=== PATIENT | female | born 1995 | race Caucasian/White ===

== ENCOUNTER → 2019-02-01 08:26 | Outpatient (CLI) | payer OTHER, SELFPAY ==
[2019-02-01 08:20] VITALS: BMI 34.7
--- NOTE | 2019-02-01 08:31 | RAD_ITS ---
STUDY: X-RAY - LUMBAR SPINE REASON FOR EXAM: Female, 23 years old. Back pain. TECHNIQUE: 5 view(s) of the lumbar spine were obtained including oblique views. COMPARISON: Comparison is made with prior study dated July 14, 2016. FINDINGS: Normal lumbar lordosis. There is no substantial scoliosis. There is a normal alignment of the vertebrae. Normal vertebral bodies and endplates. Normal disc space heights. The soft tissue structures are unremarkable. RAD/L/S Spine Min 4 Views IMPRESSION: Normal x-ray examination of the lumbar spine. Electronically Signed: Sudheer Elizondo, at 9:06 EDT , Service support ,
--- NOTE | 2019-02-01 08:31 | RAD_ITS ---
We are attempting to reach Mickey Acuña to discuss findings. An addendum with communication details will be sent when the communication is complete. STUDY: X-RAY - CERVICAL SPINE REASON FOR EXAM: Female, 23 years old. Pain. TECHNIQUE: 3 view(s) of the cervical spine were obtained. COMPARISON: None FINDINGS: Normal anterior atlantoaxial articulation. Normal odontoid process. There is straightening of the normal cervical lordosis. Normal vertebral bodies and endplates. Normal disc space heights. Normal visualized intervertebral neuroforamina. The soft tissue structures are unremarkable. RAD/Cerv Spine 2 or 3 Views IMPRESSION: Straightening of the normal cervical lordosis. Pending Final Proof Editing
== END ==
PROVIDERS: Referring Provider Physician Assistant Surgical; Visit Provider Physician Assistant Surgical
DX: S16.1XXA Strain of muscle, fascia and tendon at neck level, initial encounter (principal); S39.012A Strain of muscle, fascia and tendon of lower back, initial encounter; X58.XXXA Exposure to other specified factors, initial encounter; Y93.9 Activity, unspecified; Y92.9 Unspecified place or not applicable; Y99.9 Unspecified external cause status
CPT/HCPCS: 72040; 72110

== ENCOUNTER → 2019-03-17 11:42 | Outpatient (CLI) | payer OTHER, SELFPAY ==
[2019-02-01 08:20] VITALS: BMI 34.7
[2019-03-17 13:32] LABS: Absolute Lymphocyte Count 2.99 X10^3/ul (0.83-4.51); Absolute Neutrophil Count 5.6 X10^3/uL (2.0-7.7); Basophil# 0.02 X10^3/uL; Basophil% 0.2 % (0-1); Eosinophil# 0.06 X10^3/uL; Eosinophils% 0.6 % (0-5); Hematocrit 41.7 % (37-47); Hemoglobin 13.6 g/dl (12.0-15.0); Lymphocyte # 2.99 X10^3/ul (4.0); Lymphocyte % 32.4 % (19-41); Mean Corp Hgb Conc 32.6 g/gl (32-36); Mean Corpuscular Hgb 29.4 pg (27.0-32.0); Mean Corpuscular Volume 90.1 fL (81-99); Mean Platelet Vol. 10.6 fl (6.2-12.0); Monocyte# 0.54 X10^3/uL; Monocyte% 5.8 % (0-10); Neutrophil # 5.61 X10^3/uL (2.7-7.7); Neutrophil % 60.8 % (47-70); Platelet Count 270 K/mm3 (150-450); RBC Distribution Width CV 13.4 % (11.6-14.6); RBC Distribution Width SD 44.1 fl (35.1-43.9); Red Blood Count 4.63 M/mm3 (4.2-5.4); White Blood Count 9.2 K/mm3 (4.4-11.0)
[2019-03-17 13:36] LABS: POSITIVE COUNT NO; POSITIVE DIFFERENTIAL NO; POSITIVE MORPHOLOGY NO
[2019-03-17 13:52] LABS: ALB/GLOB Ratio 0.9 RATIO (0.9-2.4); AST(SGOT) 13 U/L (15-37); Alanine Aminotransfer ALT/SGPT 20 U/L (13-56); Albumin, Serum 3.7 g/dL (3.2-5.0); Alkaline Phosphatase 47 U/L (45-117); Anion Gap 5 (5-15); BUN 14 mg/dL (7-18); BUN/Creat Ratio 20.1 RATIO (10-20); Chloride 106 mmol/L (98-107); Cholesterol 178 mg/dL (200); EST Glomerular Filtration Rate 110 mL/min (>60); Est Glom Filt Rate - Afr Amer 133 mL/min (>60); Globulin 4.2 g/dL (2.2-4.2); Glucose 88 mg/dL (74-106); High Density Lipoprotein 43 mg/dL; Potassium 3.9 mmol/L (3.5-5.1); Protein, Total 7.9 g/dL (6.4-8.2); Sodium Level 136 mmol/L (136-145); Thyroid Stim Hormone (TSH) 0.97 uIU/mL (0.358-3.74); Triglycerides 217 mg/dL; Very Low Density Lipoprotein 43 mg/dL (5-40)
== END ==
PROVIDERS: Family Provider Student in an Organized Health Care Education/Training Program; PCP Student in an Organized Health Care Education/Training Program; Referring Provider Advanced Practice Midwife; Visit Provider Advanced Practice Midwife
DX: Z01.419 Encounter for gynecological examination (general) (routine) without abnormal findings (principal); Z13.29 Encounter for screening for other suspected endocrine disorder; Z13.220 Encounter for screening for lipoid disorders
CPT/HCPCS: 36415; 80053; 80061; 84443; 85025

== ENCOUNTER 2021-06-28 18:40 | Outpatient (CLI) | payer OTHER, SELFPAY ==
[2021-06-28] VITALS (7 sets, daily range): BP systolic 133; BP diastolic 84; PULSE 98–117; TEMP 36.9–37.7; O2SAT 98–100; BMI 37.9
--- NOTE | 2021-06-28 19:45 | OB.TRI.NOTE ---
HPI - General HPI Narrative TOM JUSTICE, is a 26 F who presents with pelvic pain and pressure. She states all day today she has noticed a throbbing pain in her vagina, and a pressure sensation as if she has to have a bowel movement and urinate at same time. She feels that her abdomen is occasionally tightening but unable to keep track of this. No vaginal bleeding or leaking of fluid. No fevers or chills. Eating well. No vomiting. She reports constipation and her last bowel movement was 2 days ago. No urinary symptoms. complicated by A2GDM on insulin. H/o prior IOL at 39 wks for gHTN. On baby ASA. Maternal Data Information BRANDI Calculator Estimated Delivery Date Method Current WG Current Estimate 09/07/21 LMP (Certain) 29w 6d [facility] Medical History (Updated 06/28/21 @ 19:[address] Elizabeth Ariza, DO) Chronic neck and back pain Fatigue History of anemia Limb weakness Severe headache Shoulder pain unexplained bruises Home Medications aspirin 81 mg PO DAILY 06/28/21 [History Last Taken 06/27/21 17:00] ferrous sulfate [iron] 325 mg PO DAILY 06/28/21 [History Last Taken 06/27/21 17:00] insulin NPH isoph U-100 human 8 unit SUBCUT QPM 06/28/21 [History Last Taken 06/27/21 21:00] [id number]-[id number]-FA [] 1 tab PO DAILY 06/28/21 [History Last Taken 06/28/21 08:00] Allergy/AdvReac Type Severity Reaction Status Date / Time No Known Allergies Allergy Verified 06/28/21 19:33 Family History Mother Lung cancer Father Lupus Other Diabetes Hypertension Surgical History (Updated 06/28/21 @ 19:[address] Elizabeth Ariza, ) Hx of section Social History (Updated 02/01/19 @ 09:47 by Domenico ISAAC, PONCHO) Smoking Status: Light Smoker (<10/day) alcohol intake: never Visit Details Expected Delivery Route/Plan Patient has h/o section and plans for a repeat section. ROS ROS Narrative As noted in HPI. Physical Exam Const alert, no apparent distress and healthy appearing General Appearance: comfortable HEENT normocephalic GI soft to palpation and non-tender Extremity normal to inspection NST FHR Rate Baby A Baseline: 140 Variability:: Moderate Accelerations:: 10 x 10 Decelerations:: None NST Reactive:: Appropriate for gestational age Uterine Activity:: Occasional ctx Assessment & Plan (1) 29 weeks gestation of : PLAN: - Abd is non tender and exam not acute - FFN collected - Cervix closed on exam - Dispo pending FFN and cervical recheck (2) History of section: (3) Gestational diabetes: (4) History of gestational hypertension: (5) Vaginal pain: (6) Pelvic pressure in : (7) Constipation:
[2021-06-28 20:29] LABS: Color, Urine Yellow (Yellow); Glucose, Dipstick Normal (Normal); Ketone-Dipstick Negative (Negative); Leukocyte Esterase-Dipstick Negative /ul (Negative); Nitrite-Dipstick Negative (Negative); Occult Blood-Urine Negative /ul (Negative); Protein-Dipstick Negative (Negative); Specific Gravity, Urine 1.025 (1.002-1.030); Urine Bilirubin Dipstick Negative (Negative); Urine Clarity Clear (Clear); Urine Urobilinogen Normal (Normal)
[2021-06-28 20:31] LABS: Fetal Fibronectin Negative
== END 2021-06-28 21:00 | disposition home or self-care (01) ==
LOC: WPOUT 18:49 → WP 18:49
PROVIDERS: PCP Student in an Organized Health Care Education/Training Program; Referring Provider Obstetrics & Gynecology; Visit Provider Obstetrics & Gynecology
DX: O99.613 Diseases of the digestive system complicating pregnancy, third trimester (principal); K59.00 Constipation, unspecified; R10.2 Pelvic and perineal pain; O34.219 Maternal care for unspecified type scar from previous cesarean delivery; O24.414 Gestational diabetes mellitus in pregnancy, insulin controlled; O99.891 Other specified diseases and conditions complicating pregnancy; G89.29 Other chronic pain; M54.9 Dorsalgia, unspecified; M54.2 Cervicalgia; O99.333 Smoking (tobacco) complicating pregnancy, third trimester; F17.200 Nicotine dependence, unspecified, uncomplicated; Z79.82 Long term (current) use of aspirin; Z79.4 Long term (current) use of insulin; Z79.899 Other long term (current) drug therapy; Z3A.29 29 weeks gestation of pregnancy; Z87.59 Personal history of other complications of pregnancy, childbirth and the puerperium
CPT/HCPCS: 59025; 59050; 81002; 82731; 87086; 87088; 99218; G0378

== ENCOUNTER 2021-07-29 10:45 | Outpatient (CLI) | payer OTHER, SELFPAY ==
[2021-07-29] VITALS (27 sets, daily range): BP systolic 117–148; BP diastolic 63–80; PULSE 96–194; TEMP 36.9–37.1; O2SAT 82–98; BMI 39.2
[2021-07-29 11:33] LABS: Hematocrit 31.3 % (37-47); Hemoglobin 9.9 g/dL (12.0-15.0); Mean Corp Hgb Conc 31.6 g/dL (32-36); Mean Corpuscular Hgb 26.8 pg (27.0-32.0); Mean Corpuscular Volume 84.8 fL (81-99); Mean Platelet Vol. 11.3 fl (6.2-12.0); Platelet Count 268 K/mm3 (150-450); RBC Distribution Width CV 13.7 % (11.6-14.6); RBC Distribution Width SD 42.5 fl (35.1-43.9); Red Blood Count 3.69 M/mm3 (4.2-5.4); White Blood Count 8.7 K/mm3 (4.4-11.0)
[2021-07-29 12:09] LABS: Protein, Urine (Random) 16.9 mg/dL (<11.9); Protein:Creat Ratio 212 mg/g CRE (0-200)
[2021-07-29 12:16] LABS: ROM Internal Control Test YES-OK TO RESULT pt. (Internal QC); ROM Patient Test Negative (Negative)
--- NOTE | 2021-07-29 12:41 | EKG12_ITS ---
Test Reason : Blood Pressure : / mmHG Vent. Rate : 108 BPM Atrial Rate : 108 BPM P-R Int : 140 ms QRS Dur : 082 ms QT Int : 358 ms P-R-T Axes : 054 018 025 degrees QTc Int : 479 ms Sinus tachycardia Otherwise normal ECG Confirmed by MARINE EASON, JESUS ([id number]), book editor CRISTAL STONE ([id number]) on 07/31/2021 8:54:34 AM Referred By: Susu Rhodes Confirmed By:JESUS HAWTHORNE MD
[2021-07-29 12:47] LABS: AST(SGOT) 15 U/L (15-37); Alanine Aminotransfer ALT/SGPT 16 U/L (13-56); Creatinine, Serum 0.39 mg/dL (0.55-1.02); EST Glomerular Filtration Rate 212 mL/min (>60); Est Glom Filt Rate - Afr Amer 257 mL/min (>60); Uric Acid 3.2 mg/dL (2.6-6.0)
[2021-07-29] MEDS: 0.9 % NaCl (Sterile) Posiflush 10 mL IV ×5 (14:05→17:18)
[2021-07-29] MEDS: Acetaminophen 500 MG Tablet 1000 MG PO (14:20)
[2021-07-29] MEDS: DiphenhydrAMINE 50 MG/ML Syringe 25 MG IV (14:23)
[2021-07-29] MEDS: Metoclopramide 10 MG/2 ML Vial 5 MG IV (14:26)
[2021-07-29] MEDS: cycloBENZAPRine HCl 5 MG TABLET PO (15:08)
[2021-07-29] MEDS: Lactated Ringers 1,000 ML 999 ML IV (16:20)
--- NOTE | 2021-08-03 09:03 | OB.TRI.NOTE ---
HPI - General HPI Narrative SUSU JUSTICE, is a 26 F who presents for headache and mildly elevated blood pressure. complicated by GDMA2 and unsure of control as patient is not bringing blood sugar log. Headache started 3 to 4 days ago, no relieved by Tylenol. Rating 5-6/10. BP elevated in 150/80s at home and mild range in office. Denies visual changes, RUQ abdominal pain or swelling. Maternal Data Information BRANDI Calculator Estimated Delivery Date Method Current WG Current Estimate 09/07/21 LMP (Certain) 35w 0d PFSH PFSH Medical History (Updated 08/03/21 @ 09:07 by Susu Rhodes CNM) Chronic neck and back pain Fatigue History of anemia Limb weakness Severe headache Shoulder pain unexplained bruises Home Medications aspirin 81 mg PO DAILY 06/28/21 [History Last Taken 07/28/21 09:00 81 mg] ferrous sulfate [iron] 325 mg PO DAILY 06/28/21 [History Last Taken 07/28/21 09:00 325 mg] insulin NPH isoph U-100 human 12 unit SUBCUT QPM 06/28/21 [History Last Taken 07/28/21 22:00 12 units] jnqyhpdx-baj-Fh-FA [] 1 tab PO DAILY 06/28/21 [History Last Taken 07/28/21 09:00 1 tablet] insulin NPH isoph U-100 human 8 unit SUBCUT BREAKFAST 07/29/21 [History Last Taken 07/29/21 08:30 8 units] Allergy/AdvReac Type Severity Reaction Status Date / Time No Known Allergies Allergy Verified 07/30/21 10:39 Family History Mother Lung cancer Father Lupus Other Diabetes Hypertension Surgical History Hx of section Social History Smoking Status: Light Smoker (<10/day) alcohol intake: never Visit Details Expected Delivery Route/Plan Patient has h/o section and plans for a repeat section. ROS Constitutional Constitutional: Reports systems reviewed and no addt'l complaints, except as documented; Denies headache(s) Eyes Eyes: Denies acute decrease in peripheral vision, blurry vision or change in vision ENT HEENT: Reports headache(s); Denies dizziness Cardiovascular Cardiovascular: Denies chest pain or dizziness Respiratory/Chest Respiratory/Chest: Denies cough, dyspnea, dyspnea on exertion, shortness of breath at rest or shortness of breath with exertion Gastrointestinal Gastrointestinal: Denies abdominal pain, diarrhea, nausea or vomiting Genitourinary Genitourinary: Denies abdominal discomfort or movement Musculoskeletal Musculoskeletal: Denies limited range of motion Integumentary Integumentary: Reports systems reviewed and no addt'l complaints, except as documented Neurologic Neurologic: Reports systems reviewed and no addt'l complaints, except as documented Psychiatric Psychiatric: Reports systems reviewed and no addt'l complaints, except as documented Endocrine Endocrinology: Reports systems reviewed and no addt'l complaints, except as documented Hematologic/Lymphatic Hematologic/Lymphatic: Reports systems reviewed and no addt'l complaints, except as documented Allergic/Immunologic Allergic/Immunologic: Reports systems reviewed and no addt'l complaints, except as documented Physical Exam Const alert and oriented x3 General Appearance: cooperative Orientation / Consciousness: awake, oriented to person, oriented to place and oriented to time Exam Limitations: no limitations HEENT normocephalic Head and Scalp: normal to inspection, normocephalic and atraumatic Face and Sinus: normal facial exam Eyes General Eye: normal appearance of both eyes Neck full ROM Chest Chest: symmetrical chest wall rise Resp normal respiratory effort and normal air movement Auscultation: clear to auscultation bilaterally Cardio regular rate, regular rhythm, S1 normal heart sound, S2 normal heart sound, no murmurs, no rub, no gallops and no clicks GI normal to inspection, nondistended, normoactive bowel sounds and non-tender appearance of the vagina normal Bladder / Kidney Exam: no CVA tenderness Back/Spine normal ROM Extremity normal to inspection and full ROM Skin no rashes or lesions noted Neuro oriented x3, CN's II-XII intact bilaterally, moves all extremities and deep tendon reflexes 2+ bilaterally Sensorium / Orientation: awake, alert and oriented to person Motor Exam: clonus present +2 BLE Deep Tendon Reflexes: Rt Patellar (L4): 2+ and Lt Patellar (L4): 2+ NST FHR Rate Baby A Baseline: 125 Variability:: Moderate Accelerations:: 15 x 15 Decelerations:: None NST Reactive:: Appropriate for gestational age Uterine Activity:: Irregular contractions Assessment & Plan (1) Uterine contractions: (2) History of gestational hypertension: (3) Gestational diabetes: (4) History of section: (5) Headache: (6) Gestational HTN: PLAN: 1) Reactive NST 2) ROM plus negative 3) Preeclampsia labs normal 4) Headache cocktail, decreased pain after medication and eating 5) 1 liter of LR, decreased contractions and no cervical change 6) Follow up in office in 2 days. 7) To bring blood sugar log to visit 8) Continue to check BP at home and call if 150/90 9) Consulted and agrees with plan
== END 2021-07-29 18:25 | disposition home or self-care (01) ==
LOC: WPOUT 10:55 → WP 10:57
PROVIDERS: PCP Student in an Organized Health Care Education/Training Program; Referring Provider Advanced Practice Midwife; Visit Provider Advanced Practice Midwife
DX: O13.3 Gestational [pregnancy-induced] hypertension without significant proteinuria, third trimester (principal); O24.414 Gestational diabetes mellitus in pregnancy, insulin controlled; O34.219 Maternal care for unspecified type scar from previous cesarean delivery; O99.333 Smoking (tobacco) complicating pregnancy, third trimester; F17.200 Nicotine dependence, unspecified, uncomplicated; Z79.82 Long term (current) use of aspirin; Z3A.35 35 weeks gestation of pregnancy
CPT/HCPCS: 96361; 96365; 96375 ×2; 36415; 59025; 59050; 82565; 82570; 84112; 84156; 84450; 84460; 84550; 85027; 93005; 99218; J1756; J7120; G0378

== ENCOUNTER 2021-07-30 10:25 | Outpatient (CLI) | payer OTHER, SELFPAY ==
[2021-07-30 10:37] VITALS: BMI 39.2
[2021-07-30 10:40] VITALS: TEMP 36.9
[2021-07-30 10:48] VITALS: BP 136/74; PULSE 125
--- NOTE | 2021-07-30 12:04 | OB.TRI.NOTE ---
HPI - General HPI Narrative TOM JUSTICE, is a 26 year old at 34.3 weeks gestation who presents to triage for contractions that started earlier today. Denies any loss of fluid or vaginal bleeding. Positive movement. Denies headache, dizziness, SOB or CP. Maternal Data Information BRANDI Calculator Estimated Delivery Date Method Current WG Current Estimate 09/07/21 LMP (Certain) 34w 3d PFSH PFSH Medical History (Updated 07/30/21 @ 14:41 by Nupur Ahn CNM) Chronic neck and back pain Fatigue History of anemia Limb weakness Severe headache Shoulder pain unexplained bruises Home Medications aspirin 81 mg PO DAILY 06/28/21 [History Last Taken 07/28/21 09:00 81 mg] ferrous sulfate [iron] 325 mg PO DAILY 06/28/21 [History Last Taken 07/28/21 09:00 325 mg] insulin NPH isoph U-100 human 12 unit SUBCUT QPM 06/28/21 [History Last Taken 07/28/21 22:00 12 units] [id number]-nlz-Qh-FA [] 1 tab PO DAILY 06/28/21 [History Last Taken 07/28/21 09:00 1 tablet] insulin NPH isoph U-100 human 8 unit SUBCUT BREAKFAST 07/29/21 [History Last Taken 07/29/21 08:30 8 units] Allergy/AdvReac Type Severity Reaction Status Date / Time No Known Allergies Allergy Verified 07/30/21 10:39 Family History Mother Lung cancer Father Lupus Other Diabetes Hypertension Surgical History Hx of section Social History Smoking Status: Light Smoker (<10/day) alcohol intake: never Visit Details Expected Delivery Route/Plan Patient has h/o section and plans for a repeat section. ROS Eyes Eyes: Denies blurry vision Cardiovascular Cardiovascular: Reports none; Denies chest pain at rest, chest pain with activity or dizziness Respiratory/Chest Respiratory/Chest: Denies cough or dyspnea Gastrointestinal Gastrointestinal: Reports none and other; Denies diarrhea or vomiting Genitourinary Genitourinary: Denies dysuria Musculoskeletal Musculoskeletal: Reports none Integumentary Integumentary: Reports none; Denies rash Neurologic Neurologic: Denies dizziness, headache(s) or other visual disturbances Psychiatric Psychiatric: Reports none Physical Exam Const alert and no apparent distress General Appearance: cooperative Orientation / Consciousness: awake Exam Limitations: no limitations HEENT normocephalic Eyes General Eye: normal appearance of both eyes Neck full ROM Chest inspection of chest normal Resp normal respiratory effort and normal air movement Effort and Inspection: symmetric chest movement Auscultation: clear to auscultation bilaterally Cardio regular rate GI soft to palpation, non-tender and non-distended Inspection: and other Back/Spine normal ROM Extremity full ROM, normal capillary refill and no calf tenderness Skin no rashes or lesions noted Neuro oriented x3 and CN's II-XII intact bilaterally Psych mental status grossly normal NST FHR Rate Baby A Baseline: 140 Variability:: Moderate Accelerations:: 15 x 15 Decelerations:: None NST Reactive:: Yes FHR Category:: Category I Uterine Activity:: irregular Assessment & Plan (1) Uterine contractions: PLAN: NST reactive- Cat. 1 tracing TOCO reading irregular contractions- palpate mild and relaxed in between CE 1//-2 remains unchanged after 2 hours of monitoring Discharge home with labor precautions and follow up in office Dr. Montgomery collaborating physician and involved in plan of care
== END 2021-07-30 13:15 | disposition home or self-care (01) ==
LOC: WPOUT 10:33 → WP 10:33
PROVIDERS: PCP Student in an Organized Health Care Education/Training Program; Referring Provider Advanced Practice Midwife; Visit Provider Advanced Practice Midwife
DX: O47.03 False labor before 37 completed weeks of gestation, third trimester (principal); O99.333 Smoking (tobacco) complicating pregnancy, third trimester; F17.200 Nicotine dependence, unspecified, uncomplicated; O26.893 Other specified pregnancy related conditions, third trimester; M54.2 Cervicalgia; M54.9 Dorsalgia, unspecified; G89.29 Other chronic pain; Z79.82 Long term (current) use of aspirin; Z3A.34 34 weeks gestation of pregnancy
CPT/HCPCS: 59025; 59050; 99218; G0378

== ENCOUNTER 2021-08-19 05:00 | Inpatient (IN) | payer OTHER, SELFPAY ==
--- NOTE | 2021-08-13 17:01 | HP.PCM_ITS ---
History and Physical Date of Admission: 08/19/21 HPI: The patient is a 26 year old female presenting for pre-operative visit. She is scheduled for section and bilateral salpingectomy, for sterilization request previous section on 08/19/2021. Procedure discussed along with risks, benefits and complications. Other alternatives discussed for management. Consent form signed? Yes. ? ? PAST MEDICAL HISTORY PAST MEDICAL HISTORY Diagnosis Date ? Anemia complicating , second trimester 05/23/2021 ? Gestational diabetes mellitus, class A1 02/06/2021 ? Gestational hypertension 08/01/2021 ? Other acne ? ? ? PAST SURGICAL HISTORY PAST SURGICAL HISTORY Procedure Laterality Date ? ANESTH, SECTION ? ? ? DELIVERY ONLY ? 02/25/12 ? , low transverse ? ? ? CURRENT MEDICATIONS Current Outpatient Medications Medication Sig Dispense Refill ? aspirin 81 mg cap Take by mouth. ? ? ? insulin NPH injection (HumuLIN N,NovoLIN N) Inject 20 Units subcutaneously as directed. inject 12 units at bedtime and 8 units with breakfast. 3 mL 2 ? ferrous sulfate (IRON ORAL) Take by mouth. ? ? ? Insulin [place], Disposable, (NOVOFINE 32) 32 gauge x 1/4 1 Each twice daily. 60 Each 1 ? blood sugar diagnostic test strip 1 Strip four times daily. Use as instructed 120 Strip 9 ? Lancets lancets 1 Each four times daily. Use as instructed 120 Each 9 ? Lgbvpelj-Kf-Anw-Fe-FA tab Take 1 tablet by mouth once daily. 30 tablet 0 ? No current facility-administered medications for this visit. ? ? ALLERGIES: Minocycline ? PERSONAL HISTORY: SOCIAL HISTORY Social History ? Tobacco Use ? Smoking status: Former Smoker ? ? Years: 2.00 ? Smokeless tobacco: Never Used Vaping Use ? Vaping Use: Never used Substance Use Topics ? Alcohol use: No ? Drug use: No ? FAMILY HISTORY: FAMILY HISTORY FAMILY HISTORY Problem Relation Age of Onset ? Cancer Mother ? ? Stage 4 Lung Cancer ? other (LUPUS) Father ? ? Cancer Maternal Grandfather ? ? stomach ? Hypertension Paternal Grandmother ? ? Diabetes Other ? ? MGGM ? ? REVIEW OF SYMPTOMS: GENERAL: denies fevers or chills ENDOCRINOLOGY: has not been on steroids Cardiology : denies palpitations or chest pain Respiratory: denies SOB or cough Hematology: denies history of prolonged bleeding or easy bruising or VTE Allergy: Denies history of personal or family history of allergy to anesthesia ? PHYSICAL EXAMINATION: ? VITALS: Blood pressure 132/82, weight 244 lb (110.7 kg), last menstrual period 12/01/2020. ? GENERAL: The patient is well nourished, well hydrated in no acute distress. , The patient is oriented to time, place, and person. NECK: Supple. No lynphadenopathy, normal thyroid, no thyromegaly. LUNGS: Clear to auscultation bilaterally. no wheezes, rhonchi or rales HEART: Regular rate and rhythm, Normal heart sounds and No murmurs or gallops Abd- soft, nontender, gravid ? ? IMPRESSION:Estimated Date of Delivery: 09/07/21 point what appears to be uncontrolled gestational diabetes on insulin, and gestational HTN ? PLAN: The risks/benefits/alternatives and personal involved for the planned delivery and bilateral salpingectoy were reviewed with the patient. Her questions were answered to her satisfaction and she desires to proceed. Consent was signed. I reviewed with her postop instructions and expectations. ? ? I have reviewed and updated past medical and surgical history, medications and allergies This H&P was completed on 08/13/2021. Assessment & Plan Assessment/Plan (1) Gestational HTN: (2) Hx of section: (3) Insulin controlled gestational diabetes mellitus (GDM) during , antepartum: (4) Maternal obesity syndrome in third trimester: (5) Body mass index (BMI) of 40.1 to 44.9 in adult:
[2021-08-19] VITALS (21 sets, daily range): BP systolic 120–141; BP diastolic 53–78; PULSE 84–110; RESP 16–18; TEMP 36.3–37.2; O2SAT 92–100; BMI 43.1
--- NOTE | 2021-08-19 | FALS_PTH ---
PATIENT: TOM JUSTICE LOC: [facility] U#:[id number] AGE/SX: 26/F ROOM: WP006 RE08/19/[address]: Dr. Sarah Gusman MD : 1995 BED: 1 DIS: 08/22/2021 SPEC #: [id number] RECD: 08/19/21 10:50 STATUS: NIMISHA REAbida #: [id number] VILMA: 08/19/21 00:[address]: Sarah Gusman DEPT: SURGICAL PATHOLOGY RECD BY: Esteban Hernandez ENTERED: 08/19/21 10:50 SP TYPE: FALL TUBES OTHR DR: Dr. Rivka Crow MD Tissues: A - Fallopian tube B - Skin appendage, NOS Procedures: Surgery Specimen Level II Surgery Specimen Level IV HEADER OPERATION: Tubal ligation, biopsy PRE-OP DIAGNOSIS: Sterilization, skin tag on right pubis TISSUE SUBMITTED: A ? Fallopian tubes, suture in right tube, B - Skin tag on right pubis MICROSCOPIC DIAGNOSIS A. Right and left fallopian tubes, bilateral salpingectomies: Complete segments of fallopian tubes with no pathologic change. B. Skin tag of right pubis, biopsy: Consistent with fragments of condyloma. See comment. AM:jose 08/20/2021 COMMENT B. Results from immunohistochemistry ([id number]) for surrogate HPV marker (p16) will be reported separately. Case has been reviewed in consultation with Dr. Rubio who concurs with the above diagnosis. IDC:SJ MICROSCOPIC DESCRIPTION Slides are reviewed. GROSS DESCRIPTION A - Received in fixative is one container labeled with the patient's name and designated bilateral fallopian tubes, suture in right tube. The specimen consists of bilateral fallopian tubes including fimbrial ends. The right tube is identified by a suture and measures 7 cm in length and 0.5 cm in diameter. The left fallopian tube measures 7 cm in length and 0.5 cm in diameter. Sections reveal unremarkable cut surfaces. Also present in the container are two detached pieces of altamirano soft tissue measuring in aggregate 1.5 x 1 x 0.5 cm. Event Specialist Product Demonstrator sections are submitted in two cassettes as follows: 1 ? right fallopian tube, detached pieces of tissue inked black, 2 ? left fallopian tube. B - Received is one container labeled with the patient's name and not further designated. The specimen consists of two pieces of altamirano-brown skin measuring 1 x 0.5 x 0.3 cm and the second piece measures 1.2 x 1 x 0.4 cm. The larger piece is inked. The smaller piece is bisected and the largest piece is serially sectioned. The entire specimen is submitted in one cassette. / SJ:jose 08/19/21 TC:3 CPT: 56806, 46087 x2
--- NOTE | 2021-08-19 | IMM_PTH ---
PATIENT: TOM JUSTICE LOC: WP U#:[id number] AGE/SX: 26/F ROOM: WP006 RE08/19/[address]: Dr. Sarah Gusman MD : 1995 BED: 1 DIS: 08/22/2021 SPEC #: [id number] RECD: 08/20/21 14:38 STATUS: NIMISHA REQ #: [id number] VILMA: 08/19/21 00:[address]: Sarah Gusman DEPT: IMMUNOHISTOCHEMISTRY RECD BY: Cici Veronica ENTERED: 08/20/21 14:42 SP TYPE: IMMUNO OTHR DR: Dr. Rivka Crow MD Tissues: B - Skin of pubic area Procedures: p16 (initial) KI-67 (add) PHYSICIAN & INSTITUTION [place] [id number] SPECIMEN INFORMATION: Tissue Source: B ? Skin tag on right pubis Clinical Info: Skin tag on right pubis Specimen Number: [id number] CPT code: 13879, 85862 METHODOLOGY: Deparaffinized sections of prefer/formalin-fixed tissue or PAP/DQ stained slides are incubated with monoclonal/polyclonal antibodies/oligonucleotide probes. Localization is made via biotin free immunoperoxidase method. Appropriate controls are performed and reacted as expected. Results on target cell population are indicated in the following table: RESULTS: ANTIBODY / CLONE RESULT Block B P16 (E6H4) positive, focal, patchy Ki-67 (30-9) positive, low These tests were developed and their performance characteristics determined by [facility]. They may not have been cleared or approved by the U.S. Food and Drug Administration. The FDA has determined that such clearance or approval is not necessary. The above immunohistochemical/dualISH markers are ordered and reviewed by the Pathologist. INTERPRETATION: B. Skin tag on right pubis: Consistent with condyloma. AM:makeda 08/21/21
[2021-08-19 05:40] LABS: Bedside Glucose 84 mg/dL (70-110)
[2021-08-19] MEDS: Lactated Ringers 1,000 ML 999 ML IV (05:40)
[2021-08-19] MEDS: Acetaminophen 500 MG Tablet 1000 MG PO ×3 (05:45→18:05)
[2021-08-19 06:03] LABS: Absolute Lymphocyte Count 2.82 X10^3/uL (0.83-4.51); Absolute Neutrophil Count 6.2 X10^3/uL (2.0-7.7); Basophil# 0.03 X10^3/uL; Basophil% 0.3 % (0-1); Eosinophil# 0.09 X10^3/uL; Eosinophils% 0.9 % (0-5); Hematocrit 32.4 % (37-47); Lymphocyte # 2.82 X10^3/ul (0.83-4.51); Lymphocyte % 27.5 % (19-41); Mean Corp Hgb Conc 30.9 g/dL (32-36); Mean Corpuscular Hgb 26.2 pg (27.0-32.0); Mean Platelet Vol. 11.4 fl (6.2-12.0); Monocyte% 9.7 % (0-10); NRBC Flagged by Analyzer 0 % (0-5); Neutrophil # 6.23 X10^3/uL (2.7-7.7); Neutrophil % 60.7 % (47-70); Platelet Count 251 K/mm3 (150-450); RBC Distribution Width SD 46.1 fl (35.1-43.9); Red Blood Count 3.81 M/mm3 (4.2-5.4); White Blood Count 10.3 K/mm3 (4.4-11.0)
[2021-08-19] MEDS: Lactated Ringers 1,000 ML 150 ML IV (06:41)
[2021-08-19] MEDS: Sodium Citrate/Citric Acid 30 ML UDC PO (07:18)
[2021-08-19] MEDS: Cefazolin 2 GM in 0.9% Normal Saline 100 ML IV (07:25)
--- NOTE | 2021-08-19 08:19 | EX.PCM.OBRPT ---
Assessment & Plan (1) Gestational HTN: (2) Insulin controlled gestational diabetes mellitus (GDM) during , antepartum: (3) Maternal obesity syndrome in third trimester: (4) Body mass index (BMI) of 40.1 to 44.9 in adult: (5) deliv NOS-unsp: (6) Skin tag of vulva: (7) Sterilization: Maternal Data Information BRANDI Calculator Estimated Delivery Date Method Current WG Current Estimate 09/07/21 LMP (Certain) 37w 2d Final BRANDI: 09/07/21 Gestational age: 37 2/7 Details Operative Information Date of Procedure: 08/19/21 Pre-Operative Diagnosis: 37 weeks, previous c/s, poorly controlled GDM, gest HTN, sterilization request, skin tags on mons pubis (2) Post-Operative Diagnosis: same Classification: Scheduled Procedure Type: bilateral salpingectomy (with removal of skin tags (2) from mons pubis) ordnance engineering technician #1: Caity Hardin Type of Anesthesia: Epidural Anesthesiologist: Raffy Rosario Special Medications: duramorph Antibiotic Given: Ancef 2 grams IV x1 Drain: [place] to straight drain Estimated Blood Loss: 800 Fluids Replaced: 1000 Procedure Start Time: 07:46 Procedure Stop Time: 08:29 Time of Delivery: 07:49 Findings Description of Procedure: The patient was taken to the operating room. She was prepped and draped in the dorsal supine position with a leftward tilt. A Pfannenstiel skin incision was made approximately 2 cm above the symphysis pubis and carried through to underlying layer fascia with the scalpel. The fascia was incised incised in the midline and extended laterally with the Kebede scissors. The rectus muscles were in the midline and the peritoneum was entered bluntly. The peritoneal incision was stretched and the bladder blade was placed. The uterine incision was made in a low transverse fashion with the scalpel and extended superiorly and inferiorly with blunt dissection. The amniotic membranes were ruptured bluntly and a large amount clear amniotic fluid returned. The infant's head was brought to the incision in the flexed position and delivered without difficulty. The remainder of the was delivered with gentle traction and fundal pressure in the standard fashion. The mouth and nares were bulb suctioned. The cord was clamped and cut as the was stimulated. Cord clamping was delayed approximately 30 seconds. The was handed off to the waiting nursing staff. The placenta was delivered with fundal massage and gentle traction in the standard fashion. The uterus was exteriorized and cleared of all clots and debris. The cervix was dilated with a ring forcep. The uterine incision was closed with #1 Vicryl in a running locked fashion. A second layer of the same suture was used in an imbricating fashion. The incision was examined and was found to be hemostatic. The uterus was placed back into the peritoneal cavity and hemostasis was again confirmed. The right tube was then identified and followed out to the fimbriated end. The LigaSure device was used to clamp, seal, and transect the antimesenteric portion of the tube. The tube was then transected off the uterus with the LigaSure device. The pedicles were hemostasis. The same procedure was performed on the contralateral side. The rectus muscles were examined and any bleeding was Bovie cauterized. The parietal peritoneum and rectus muscles were closed en bloc with an 0 Vicryl running suture. The surgical teams outer gloves were then changed. The rectus fascia was examined and any bleeding was Bovie cauterized and the rectus fascia was closed with 1 Vicryl suture in a running standard fashion. The subcutaneous tissue was examining and any bleeding was Bovie cauterized. The subcutaneous tissue was reapproximated with 3-0 Vicryl suture. The 2 skin tags were elevated up with pickups and removed with the scalpel. The skin incision and skin biopsy incisions were closed in a subcuticular fashion by the RICE DRYER MECHANIC with me present in the labor and delivery suite. I performed the remainder of the procedure with assistance. The biology laboratory assistant provided tissue manipulation, visualization, and retraction during the surgery. All sponge, lap, and needle counts were correct. The patient was taken to her room for recovery in a stable condition. Presentation: Positive for Vertex Amniotic Membrane Rupture Type: Spontaneous Amniotic Fluid Description: Clear Placental Delivery Description: Expressed Placenta Disposition: [facility] Specimen(s) Sent to Pathology: bilateral fallopian tubes, skin tags from mons pubis Cord Vessel Description: 3 Vessels Cord Entanglement: None Infant A Gender: Male (1 minute): 8 (5 minute): 8 Delayed Cord Clamping: Yes Complications Complications: none
[2021-08-19] MEDS: Oxytocin 30 units/NS 500 ml 30 UNITS/500 ML IV.SOLN 167 UNITS IV (08:40)
[2021-08-19] MEDS: Ketorolac 30 MG/ML Syringe IV ×3 (09:42→21:49)
[2021-08-19 10:41] LABS: Bedside Glucose 97 mg/dL (70-110)
[2021-08-19] MEDS: Senna/Docusate Sodium 1 Tablet PO (12:43)
[2021-08-19] MEDS: Lactated Ringers 1,000 ML 100 ML IV (13:50)
[2021-08-19] MEDS: 0.9% Saline Lock 10 ML Syringe IV ×2 (17:25→21:49)
[2021-08-19] MEDS: Enoxaparin 40 MG/0.4 ML Syringe SC (19:56)
[2021-08-20] VITALS (7 sets, daily range): BP systolic 127–152; BP diastolic 69–83; PULSE 96–114; RESP 16–18; TEMP 36.4–37.1; O2SAT 95–100
[2021-08-20] MEDS: Acetaminophen 500 MG Tablet 1000 MG PO ×4 (00:10→18:21)
[2021-08-20] MEDS: Ketorolac 30 MG/ML Syringe IV (03:41)
[2021-08-20] MEDS: 0.9% Saline Lock 10 ML Syringe IV (03:42)
[2021-08-20 06:31] LABS: Hemoglobin 9.1 g/dL (12.0-15.0); Mean Corp Hgb Conc 31.4 g/dL (32-36); Mean Corpuscular Hgb 26.5 pg (27.0-32.0); Mean Corpuscular Volume 84.3 fL (81-99); Mean Platelet Vol. 11.3 fl (6.2-12.0); Platelet Count 227 K/mm3 (150-450); RBC Distribution Width CV 15.2 % (11.6-14.6); RBC Distribution Width SD 46.3 fl (35.1-43.9); Red Blood Count 3.44 M/mm3 (4.2-5.4); White Blood Count 9.6 K/mm3 (4.4-11.0)
[2021-08-20 06:45] LABS: Bedside Glucose 84 mg/dL (70-110)
[2021-08-20 06:45] LABS: Bedside Glucose 67 mg/dL (70-110)
--- NOTE | 2021-08-20 07:03 | NURSING ---
Pt's FBG was 67 this AM - gave pt 120mLs of orange juice - recheck after 15 minutes was 84 - gave pt crackers and peanut butter - notified Dr. Naseem Hayes MD stated pt does not need anymore BG checks.
[2021-08-20] MEDS: Senna/Docusate Sodium 1 Tablet PO (10:19)
[2021-08-20] MEDS: Enoxaparin 40 MG/0.4 ML Syringe SC ×2 (10:19→22:10)
[2021-08-20] MEDS: Ibuprofen 600 MG Tablet PO ×3 (10:25→22:10)
--- NOTE | 2021-08-20 16:36 | PN.OBGYN_ITS ---
Subjective Subjective Doing well per patient and nursing staff. Ambulating and taking PO without difficulty. Voiding and passing flatus. Pain controlled. , services for assistance. Baby in special care nursery. Denies headache, visual changes, chest pain, shortness of breath, leg pain or increased bleeding. Lochia normal. Objective Data Objective Data Vital Signs: Vital Signs Temp Pulse Resp BP Pulse Ox 98.7 F 114 H 16 138/80 H 97 08/20/21 13:14 08/20/21 13:14 08/20/21 13:14 08/20/21 13:14 08/20/21 13:14 Oxygen Delivery Method Room Air Weight: 251 lb 5.231 oz Body Mass Index (BMI) 43.1 Intake & Output: Intake and Output for Last 24 Hours 08/18/21 08/19/21 08/20/21 23:59 23:59 23:59 Intake Total 3349.83 / 3349.83 Output Total 550 / 550 1150 / 1150 Balance 2799.83 / 2799.83 -1150 / -1150 Lab / Micro Data Result Diagrams: 08/20/21 06:22 Labs: Laboratory Results - last 24 hr 08/20/21 06:13: POC Glucose 67 L 08/20/21 06:22: WBC 9.6, RBC 3.44 L, Hgb 9.1 L, Hct 29.0 L, MCV 84.3, MCH 26.5 L , MCHC 31.4 L, RDW Std Deviation 46.3 H, RDW Coeff of Tonny 15.2 H, Plt Count 227, MPV 11.3 08/20/21 06:39: POC Glucose 84 Micro: Microbiology 08/19/21 05:25 Nasal Secretion SARS-CoV-2 Antigen (Rapid) - Final ROS Constitutional Constitutional: Reports systems reviewed and no addt'l complaints, except as documented; Denies headache(s) Eyes Eyes: Denies acute decrease in peripheral vision, blurry vision or change in vision ENT HEENT: Reports systems reviewed and no addt'l complaints, except as documented Cardiovascular Cardiovascular: Denies chest pain or dizziness Respiratory/Chest Respiratory/Chest: Denies cough, dyspnea, dyspnea on exertion, shortness of breath at rest or shortness of breath with exertion Gastrointestinal Gastrointestinal: Denies abdominal pain, diarrhea, nausea or vomiting Genitourinary Genitourinary: Denies abdominal discomfort Musculoskeletal Musculoskeletal: Denies limited range of motion Integumentary Integumentary: Reports systems reviewed and no addt'l complaints, except as documented Neurologic Neurologic: Reports systems reviewed and no addt'l complaints, except as documented Psychiatric Psychiatric: Reports systems reviewed and no addt'l complaints, except as documented Endocrine Endocrinology: Reports systems reviewed and no addt'l complaints, except as documented Hematologic/Lymphatic Hematologic/Lymphatic: Reports systems reviewed and no addt'l complaints, except as documented Allergic/Immunologic Allergic/Immunologic: Reports systems reviewed and no addt'l complaints, except as documented Physical Exam Const alert and oriented x3 General Appearance: cooperative Orientation / Consciousness: awake, oriented to person, oriented to place and oriented to time Exam Limitations: no limitations HEENT normocephalic Head and Scalp: normal to inspection, normocephalic and atraumatic Face and Sinus: normal facial exam Eyes General Eye: normal appearance of both eyes Neck full ROM Chest Chest: symmetrical chest wall rise Resp normal respiratory effort and normal air movement Auscultation: clear to auscultation bilaterally Cardio regular rate, regular rhythm, S1 normal heart sound, S2 normal heart sound, no murmurs, no rub, no gallops and no clicks GI normal to inspection, nondistended, normoactive bowel sounds and non-tender GI Narrative: Fundus firm 2 below U. Dressing dry and intact appearance of the vagina normal Bladder / Kidney Exam: no CVA tenderness Back/Spine normal ROM Extremity normal to inspection and full ROM Skin no rashes or lesions noted Neuro oriented x3, CN's II-XII intact bilaterally and moves all extremities Sensorium / Orientation: awake, alert and oriented to person Motor Exam: clonus absent Deep Tendon Reflexes: Rt Patellar (L4): 2+ and Lt Patellar (L4): 2+ Assessment & Plan (1) Sterilization: (2) deliv NOS-unsp: (3) Gestational HTN: PLAN: 1) Routine PP care 2) Pain management 3) Lovenox for prophylaxis 4) BP stable, asymptomatic 5) Hgb stable, acute blood loss anemia, will start iron 6) Planning D/C POD#3
[2021-08-20] MEDS: Ferrous Sulfate 325 MG Tablet PO (18:21)
[2021-08-21] MEDS: Acetaminophen 500 MG Tablet 1000 MG PO ×4 (00:06→17:52)
[2021-08-21 01:26] VITALS: BP 138/93; PULSE 103; RESP 18; TEMP 36.6
[2021-08-21] MEDS: Ibuprofen 600 MG Tablet PO ×4 (04:07→21:35)
--- NOTE | 2021-08-21 08:26 | PCM.PN.OB ---
Subjective Subjective Patient seen at bedside. Feeling good. Denies any headaches, dizziness, SOB or CP. Ambulating and voiding without difficulty. Baby still in SCN and may be discharged today. Bottle feeding. Desires discharge home today. Objective Data Objective Data Vital Signs: Vital Signs Temp Pulse Resp BP Pulse Ox 97.9 F 103 H 18 138/93 H 97 08/21/21 01:26 08/21/21 01:26 08/21/21 01:26 08/21/21 01:26 08/20/21 21:44 Oxygen Delivery Method Room Air Weight: 251 lb 5.231 oz Body Mass Index (BMI) 43.1 Intake & Output: Intake and Output for Last 24 Hours 08/19/21 08/20/21 08/21/21 23:59 23:59 23:59 Intake Total 3349.83 / 3349.83 Output Total 550 / 550 1150 / 1150 Balance 2799.83 / 2799.83 -1150 / -1150 Lab / Micro Data Result Diagrams: 08/20/21 06:22 Micro: Microbiology 08/19/21 05:25 Nasal Secretion SARS-CoV-2 Antigen (Rapid) - Final ROS Eyes Eyes: Denies blurry vision, change in vision or spots in vision ENT HEENT: Denies dizziness or headache(s) Cardiovascular Cardiovascular: Denies abdominal pain, chest pain or dyspnea Respiratory/Chest Respiratory/Chest: Denies cough, dyspnea, shortness of breath at rest or shortness of breath with exertion Gastrointestinal Gastrointestinal: Denies abdominal pain, diarrhea or vomiting Genitourinary Genitourinary: Denies change in urinary stream, difficulty urinating or dysuria Musculoskeletal Musculoskeletal: Reports none Integumentary Integumentary: Denies rash Neurologic Neurologic: Denies dizziness, headache(s), memory loss or weakness Physical Exam Narrative Dressing is dry and intact Const alert and no apparent distress General Appearance: cooperative and comfortable Exam Limitations: no limitations HEENT normocephalic Eyes General Eye: normal appearance of both eyes Neck full ROM General: normal visual inspection Chest Chest: symmetrical chest wall rise Resp normal respiratory effort and normal air movement Effort and Inspection: symmetric chest movement Auscultation: clear to auscultation bilaterally Cardio regular rate and regular rhythm GI normal to inspection, nondistended, normoactive bowel sounds Back/Spine normal ROM Extremity full ROM and no calf tenderness General Extremity: normal exam except as noted Skin no rashes or lesions noted Neuro CN's II-XII intact bilaterally Psych mental status grossly normal Assessment & Plan (1) Sterilization: (2) deliv NOS-unsp: (3) Maternal obesity syndrome in third trimester: (4) Gestational HTN: QUALIFIERS: Trimester: unspecified trimester Qualified Code(s): O13.9 - Gestational [-induced] hypertension without significant proteinuria, unspecified trimester PLAN: POD 2 Repeat C/S Routine care Pain control BP slightly elevated at 138/93 Will continue to monitor BP collect PIH labs Anticipate discharge home tomorrow
[2021-08-21 08:51] VITALS: BP 139/91; PULSE 110; RESP 18; TEMP 36.7
[2021-08-21] MEDS: Enoxaparin 40 MG/0.4 ML Syringe SC ×2 (09:24→21:35)
[2021-08-21 09:33] LABS: Hematocrit 29.6 % (37-47); Hemoglobin 9.3 g/dL (12.0-15.0); Mean Corp Hgb Conc 31.4 g/dL (32-36); Mean Corpuscular Hgb 26.7 pg (27.0-32.0); Mean Corpuscular Volume 85.1 fL (81-99); Mean Platelet Vol. 11.3 fl (6.2-12.0); Platelet Count 285 K/mm3 (150-450); RBC Distribution Width CV 15.4 % (11.6-14.6); RBC Distribution Width SD 47.2 fl (35.1-43.9); Red Blood Count 3.48 M/mm3 (4.2-5.4); White Blood Count 10.6 K/mm3 (4.4-11.0)
[2021-08-21 09:38] LABS: AST(SGOT) 30 U/L (15-37); Alanine Aminotransfer ALT/SGPT 25 U/L (13-56); Creatinine, Serum 0.55 mg/dL (0.55-1.02); EST Glomerular Filtration Rate 142 mL/min (>60); Est Glom Filt Rate - Afr Amer 172 mL/min (>60); Estimated Creatinine Clearance 133.85 ml/min
[2021-08-21 12:00] VITALS: BP 138/81; PULSE 108; RESP 16
[2021-08-21] MEDS: Ferrous Sulfate 325 MG Tablet PO ×2 (12:16→16:36)
[2021-08-21] MEDS: Senna/Docusate Sodium 1 Tablet PO (12:16)
[2021-08-21 12:56] LABS: Pathology Specimen OB SEE PATHOLOGY REPORT
[2021-08-21 15:48] VITALS: BP 138/87; PULSE 107; RESP 16; TEMP 37; O2SAT 97
[2021-08-21] MEDS: oxyCODONE 5 MG Tablet PO (16:39)
[2021-08-21 20:52] VITALS: BP 149/93; PULSE 101; RESP 18; TEMP 36.6; O2SAT 100
[2021-08-22] MEDS: Acetaminophen 500 MG Tablet 1000 MG PO ×2 (00:13→06:05)
[2021-08-22 02:04] VITALS: BP 148/87; PULSE 105; RESP 18; TEMP 36.6; O2SAT 96
[2021-08-22] MEDS: 0.9% Saline Lock 10 ML Syringe IV (02:34)
--- NOTE | 2021-08-22 02:52 | CT_ITS ---
STUDY: CTA CHEST REASON FOR EXAM: Female, 26 years old. rule out PE RADIATION DOSAGE (If Supplied By Facility): CTDIvol = ( 11.47 ) mGy, DLP = ( 503.83 ) mGycm TECHNIQUE: The examination was performed with the intravenous administration of IV 100mL Isovue-370. Post-processing of the angiographic images was performed, with multiplanar reformation and 3D reconstruction. Individualized dose optimization techniques were used for this CT. COMPARISON: None. FINDINGS: Normal enhancement of the main pulmonary artery and right and left pulmonary arteries. Normal enhancement of the bilateral peripheral pulmonary arteries. There is no demonstrated pulmonary embolism. Normal thoracic aorta and visualized great vessels. There is no demonstrated aortic dissection. Normal heart and pericardium. Normal mediastinum. Normal hilar regions. Normal visualized trachea and bronchi. The lungs are well expanded. There is diffuse interstitial thickening in both lungs suggesting pulmonary edema. There are small bilateral pleural effusions. Normal chest wall structures. Normal osseous structures. Normal visualized upper abdomen. CT/CTA Chest W/WO Contrast IMPRESSION: No demonstrated pulmonary embolism or arterial dissection. There is diffuse interstitial thickening in both lungs suggesting pulmonary edema. There are small bilateral pleural effusions. Electronically Signed: Kiel Julian MD at 4:29 EST Tel , Service support ,
[2021-08-22] MEDS: Ibuprofen 600 MG Tablet PO ×2 (03:24→09:36)
[2021-08-22 07:59] VITALS: BP 145/86; PULSE 104; RESP 16; TEMP 36.7; O2SAT 98
--- NOTE | 2021-08-22 08:40 | PN.OBGYN_ITS ---
Subjective Subjective Pain well controlled. Average lochia. Tolerating regular diet. Has had a bowel movement. Denies headache or visual disturbances. Objective Data Objective Data Vital Signs: Vital Signs Temp Pulse Resp BP Pulse Ox 98.0 F 104 H 16 145/86 H 98 08/22/21 07:59 08/22/21 07:59 08/22/21 07:59 08/22/21 07:59 08/22/21 07:59 Oxygen Delivery Method Room Air Weight: 114 kg Body Mass Index (BMI) 43.1 Intake & Output: Intake and Output for Last 24 Hours 08/20/21 08/21/21 08/22/21 23:59 23:59 23:59 Output Total 1150 / 1150 Balance -1150 / -1150 Lab / Micro Data Result Diagrams: 08/21/21 09:07 08/21/21 09:07 Labs: Laboratory Results - last 24 hr 08/21/21 09:07: WBC 10.6, RBC 3.48 L, Hgb 9.3 L, Hct 29.6 L, MCV 85.1, MCH 26.7 L, MCHC 31.4 L, RDW Std Deviation 47.2 H, RDW Coeff of Tonny 15.4 H, Plt Count 285, MPV 11.3 08/21/21 09:07: Creatinine 0.55, Estim Creat Clear Calc 133.85, Est GFR (MDRD) Af Amer 172, Est GFR (MDRD) Non-Af 142, Uric Acid 5.0, AST 30, ALT 25 Micro: Microbiology 08/19/21 05:25 Nasal Secretion SARS-CoV-2 Antigen (Rapid) - Final Radiography Diagnostic Testing: Radiology Impression Chest CTA 08/22/21 02:52 IMPRESSION: No demonstrated pulmonary embolism or arterial dissection. There is diffuse interstitial thickening in both lungs suggesting pulmonary edema. There are small bilateral pleural effusions. Electronically Signed: Kiel Julian MD at 4:29 EST Tel , Service support , Physical Exam Const alert General Appearance: cooperative GI GI Narrative: soft, moderate distention, fundus firm, appropriately tender. Abdominal bandage clean dry and intact Extremity Extremity Narrative: 1+ edema, 2+ DTRs, no clonus Assessment & Plan (1) deliv NOS-unsp: PLAN: Postoperative day #3 status post repeat section and bilateral salpingectomy for sterilization. is out of the special care nursery and doing well. Patient's blood pressures are mildly elevated without evidence of preeclampsia. We will start labetalol 200 mg twice daily and d ischarged home on this. Follow-up in the office in 5 to 7 days or as needed. (2) Sterilization:
--- NOTE | 2021-08-22 08:42 | DS.PCM_ITS ---
Providers Date of Admission: 08/19/21 Primary Care Physician: Dr. Rivka Crow MD Reason For Visit: REPEAT C SECTION Diagnosis Discharge Diagnosis (1) deliv NOS-unsp: Status: Acute (2) Sterilization: Status: Acute Code(s): Z30.2 - Encounter for sterilization Medications at Discharge Home Medications ferrous sulfate [iron] 325 mg PO DAILY 06/28/21 kxupzfkx-[id number] 1 tab PO DAILY 06/28/21 ibuprofen 600 mg PO Q6H PRN #60 tablet 08/22/21 labetalol 100 mg PO BID #30 tab 08/22/21 oxycodone 5 mg PO Q6H PRN PRN 5 Days #10 tablet 08/22/21 Hospital Course Operations - (Repeat low transverse section Via Pfannenstiel skin incision and bilateral salpingectomy performed on 08/19/2021) Procedures None Summary of Care Provided Hospital Course: Patient was admitted for repeat section due to poorly controlled gestational diabetes. Gestational hypertension as well. The C- section and bilateral salpingectomy for sterilization were performed without difficulty. By postoperative day #3 patient was urinating, ambulating tolerating regular diet without difficulty. She was discharged home with routine instructions and prescriptions. She is to follow-up in our office in 5 to 7 days or as needed. She was started on labetalol 100 mg p.o. twice daily. Weight / BMI Weight Weight: 114 kg Body Mass Index (BMI) 43.1 ABG / Lab / Microbiology Data Result Diagrams: 08/21/21 09:07 08/21/21 09:07 Laboratory: Laboratory Results - last 24 hr 08/21/21 09:07: WBC 10.6, RBC 3.48 L, Hgb 9.3 L, Hct 29.6 L, MCV 85.1, MCH 26.7 L, MCHC 31.4 L, RDW Std Deviation 47.2 H, RDW Coeff of Tonny 15.4 H, Plt Count 285, MPV 11.3 08/21/21 09:07: Creatinine 0.55, Estim Creat Clear Calc 133.85, Est GFR (MDRD) Af Amer 172, Est GFR (MDRD) Non-Af 142, Uric Acid 5.0, AST 30, ALT 25 Microbiology: Microbiology 08/19/21 05:25 Nasal Secretion SARS-CoV-2 Antigen (Rapid) - Final Radiography Diagnostic Testing: Radiology Impression Chest CTA 08/22/21 02:52 IMPRESSION: No demonstrated pulmonary embolism or arterial dissection. There is diffuse interstitial thickening in both lungs suggesting pulmonary edema. There are small bilateral pleural effusions. Electronically Signed: Kiel Julian MD at 4:29 EST Tel , Service support , Meaningful Use Info Meaningful Use Diagnoses (Choose all that apply): None applicable Discharge Plan Admission Admit Date/Time: 08/19/21 05:00 Primary Reason for Your Visit: section and bilateral salpingectomy Attending Provider: Sarah Gusman Primary Care Provider: Rivka Crow Discharge Orders/Prescriptions Prescriptions: New ibuprofen [ibuprofen] 600 MG tablet 600 mg PO Q6H PRN (Reason: Pain) Qty: 60 RF: 1 labetalol 100 mg tablet 100 mg PO BID Qty: 30 RF: 0 oxycodone 5 MG tablet 5 mg PO Q6H PRN PRN (Reason: severe pain) 5 Days Qty: 10 RF: 0 Continued ferrous sulfate [iron] 325 mg (65 mg iron) Tablet 325 mg PO DAILY RF: 0 melhlovz-xks-Jq-FA 1 mg Tablet 1 tab PO DAILY RF: 0 Discontinued insulin NPH isoph U-100 human 100 unit/mL Cartridge 12 unit SUBCUT QPM RF: 0 aspirin 81 mg Capsule 81 mg PO DAILY RF: 0 insulin NPH isoph U-100 human 100 unit/mL Cartridge 8 unit SUBCUT BREAKFAST RF: 0 Referrals / Follow Up: Rivka Crow MD [Primary Care Provider] - Disposition Disposition (needs filled in before D/C Order can be placed): Home, Self Care
[2021-08-22] MEDS: Senna/Docusate Sodium 1 Tablet PO (09:35)
[2021-08-22] MEDS: Labetalol 100 MG Tablet PO ×2 (09:36→11:15)
[2021-08-22] MEDS: Enoxaparin 40 MG/0.4 ML Syringe SC (09:36)
[2021-08-22 11:00] VITALS: BP 149/90; RESP 16
== END 2021-08-22 11:40 | disposition home or self-care (01) | DRG 785 ==
PROVIDERS: Advanced Practice Midwife; Admitting Provider Obstetrics & Gynecology; PCP Student in an Organized Health Care Education/Training Program; Visit Provider Obstetrics & Gynecology
PROC: 10D00Z1 Extraction of Products of Conception, Low, Open Approach (ICD-10-PCS; CPT 59514; principal; 2021-08-19 07:15)
DX: O34.211 Maternal care for low transverse scar from previous cesarean delivery (principal); D64.9 Anemia, unspecified; Z79.4 Long term (current) use of insulin; Z30.2 Encounter for sterilization; N90.89 Other specified noninflammatory disorders of vulva and perineum; Z20.822 Contact with and (suspected) exposure to COVID-19; O24.424 Gestational diabetes mellitus in childbirth, insulin controlled; O13.4 Gestational [pregnancy-induced] hypertension without significant proteinuria, complicating childbirth; O99.02 Anemia complicating childbirth; O99.214 Obesity complicating childbirth; E66.9 Obesity, unspecified; Z79.899 Other long term (current) drug therapy; Z87.891 Personal history of nicotine dependence; Z3A.37 37 weeks gestation of pregnancy; Z37.0 Single live birth
CPT/HCPCS: 71275; 82565; 82962; 84450; 84460; 84550; 85025; 85027; 86850; 86900; 86901; 87426; 88302; 88305; 88341; 88342; 93005; 99218; J7120; Q9967; A4216; G0378; J2405

== ENCOUNTER 2021-08-23 07:10 | Outpatient (CLI) | payer OTHER, SELFPAY ==
[2021-08-23] VITALS (19 sets, daily range): BP systolic 131–158; BP diastolic 84–98; PULSE 104–124; TEMP 36.8–37.2; O2SAT 83–97; BMI 41.8
--- NOTE | 2021-08-23 08:23 | NURSING ---
day 4 arrived from home with report of BP 160s/104 at home with sustained shortness of breath after discharge. Dr. Montgomery to see patient at bedside.
--- NOTE | 2021-08-23 09:00 | OB.TRI.NOTE ---
HPI - General HPI Narrative TOM JUSTICE, is a 26 F who presents with SOB. She reports increased SOB since leaving [facility]. Patient was anxious this am and took her BP (systolic was 166). She didn't take another BP and came into L&D. Patient denies severe or persistent headache. Also denies vision changes and RUQ pain. Maternal Data Information BRANDI Calculator Estimated Delivery Date Method Current WG Current Estimate 09/07/21 LMP (Certain) 38w 0d PFSH PFSH Medical History Anxiety Chronic hypertension Chronic neck and back pain Depression Fatigue History of anemia Limb weakness Severe headache Shoulder pain unexplained bruises Home Medications ferrous sulfate [iron] 325 mg PO DAILY 06/28/21 [History Last Taken 08/18/21] [id number] 1 tab PO DAILY 06/28/21 [History Last Taken 07/28/21 09:00 1 tablet] ibuprofen 600 mg PO Q6H PRN #60 tablet 08/22/21 [Rx Last Taken 08/22/21 19:30] oxycodone 5 mg PO Q6H PRN PRN 7 Days #10 tablet 08/22/21 [Rx Last Taken 08/22/21 13:00] labetalol 200 mg PO TID 08/23/21 [History Last Taken Unknown] Allergy/AdvReac Type Severity Reaction Status Date / Time minocycline Allergy Hives Verified 08/23/21 07:56 Family History Mother Lung cancer Father Lupus Other Diabetes Hypertension Surgical History Hx of section Social History Smoking Status: Never smoker alcohol intake: never History Elective abortions Hx Para 1 Spontaneous abortions Hx # Term Pregnancies Ectopic pregnancies Hx # Pregnancies Multiple births # of living children Visit Details Expected Delivery Route/Plan Assessment & Plan (1) Shortness of breath: COMMENT: POD#4 PLAN: Patient with known gestational hypertension. BP's mildly elevated and will increase labetalol to 200mg tid. Reviewed preE & BP precautions with patient. SOB - patient with increased SOB since yesterday. Will send to ED for further evaluation. Patient agrees with plan. Patient received a STAT echo in the ED that showed cardiomyopathy. I discussed with patient with ([facility]) and plan was that patient would be transferred to [facility] main cardiac service. ED updated on this and made all transfer arrangements.
[2021-08-23] MEDS: Labetalol 100 MG Tablet PO (09:18)
--- NOTE | 2021-08-23 09:23 | NURSING ---
patient to go to ER for evaluation
== END 2021-08-23 09:33 | disposition home or self-care (01) ==
LOC: WPOUT 07:20 → WP 07:21
PROVIDERS: PCP Student in an Organized Health Care Education/Training Program; Referring Provider Obstetrics & Gynecology; Visit Provider Obstetrics & Gynecology
DX: O90.3 Peripartum cardiomyopathy (principal); O13.9 Gestational [pregnancy-induced] hypertension without significant proteinuria, unspecified trimester; O34.219 Maternal care for unspecified type scar from previous cesarean delivery; G89.29 Other chronic pain; Z79.899 Other long term (current) drug therapy; Z3A.38 38 weeks gestation of pregnancy
CPT/HCPCS: 99218; G0378

== ENCOUNTER 2021-08-23 09:45 | Emergency (ER) | payer OTHER, SELFPAY ==
[2021-08-23] VITALS (11 sets, daily range): BP systolic 124–154; BP diastolic 68–100; PULSE 93–119; RESP 14–96; TEMP 37; O2SAT 17–99; BMI 42.2
--- NOTE | 2021-08-23 10:23 | EKG12_ITS ---
Test Reason : CHEST PRESSURE Blood Pressure : / mmHG Vent. Rate : 107 BPM Atrial Rate : 107 BPM P-R Int : 130 ms QRS Dur : 082 ms QT Int : 348 ms P-R-T Axes : 072 031 028 degrees QTc Int : 464 ms Sinus tachycardia Otherwise normal ECG When compared with ECG of 29-JUL-2021 13:19, No significant change was found Confirmed by MABEL EASON, IH ([id number]), slot editor CRISTAL STONE ([id number]) on 08/23/2021 11:52:47 AM Referred By: LIDIA Confirmed By:HI MONROE MD
--- NOTE | 2021-08-23 10:24 | EDS_ITS ---
HPI History of Present Illness Chief Complaint: Shortness of Breath Narrative Narrative: Patient is 4 days has been dealing with -induced hypertension for the third trimester including edema in her legs. Since yesterday she has been feeling short of breath that is worse this morning. She did have some chest discomfort earlier this morning it did not last a long time it was achy discomfort nonpleuritic across her chest nonlateralizing, and has not recurred since then. No pains in her legs. No history of DVT or PE. She has been on blood pressure medication for the third trimester but was on no medications prior to being at this time. She was seen in OB today and sent to the emergency department for further evaluation of her dyspnea. She states in OB, her blood pressure was around 140, here it is similar. She denies any recent,, headache, fevers or chills. PFSH PFSH Medical History Anxiety Chronic hypertension Chronic neck and back pain Depression Fatigue History of anemia Limb weakness Severe headache Shoulder pain unexplained bruises Home Medications ferrous sulfate [iron] 325 mg PO DAILY 06/28/21 [History Last Taken 08/18/21] [id number] 1 tab PO DAILY 06/28/21 [History Last Taken 07/28/21 09:00 1 tablet] ibuprofen 600 mg PO Q6H PRN #60 tablet 08/22/21 [Rx Last Taken 08/22/21 19:30] oxycodone 5 mg PO Q6H PRN PRN 7 Days #10 tablet 08/22/21 [Rx Last Taken 08/22/21 13:00] labetalol 200 mg PO TID 08/23/21 [History Last Taken Unknown] Allergy/AdvReac Type Severity Reaction Status Date / Time minocycline Allergy Hives Verified 08/23/21 07:56 Family History Mother Lung cancer Father Lupus Other Diabetes Hypertension Surgical History Hx of section Social History Smoking Status: Never smoker alcohol intake: never ROS ROS ED Constitutional Constitutional ED: Denies chills or fever(s) Eyes Eyes: Reports blurry vision bilateral (mild); Denies change in vision or diplopia ENT ENT ED: Denies rhinorrhea or sore throat Cardiovascular Cardiovascular: Reports chest pain; Denies palpitations Respiratory/Chest Respiratory/Chest: Reports dyspnea; Denies cough Gastrointestinal Gastrointestinal: Denies abdominal pain, diarrhea, nausea or vomiting Genitourinary Genitourinary ED: Reports other Details: Vaginal bleeding continuing to improve but still present since delivery 4 days ago ; Denies dysuria or hematuria Musculoskeletal Musculoskeletal: Denies back pain or neck pain Integumentary Denies abscess or rash Neurologic Neurologic: Denies headache(s), paresthesias or weakness Psychiatric Psychiatric: Denies anxiety or suicidal thoughts Endocrine Endocrinology: Reports polyuria; Denies polydipsia EXAM Physical Exam Const Vital Signs: 08/23/21 09:45 08/23/21 09:49 08/23/21 12:06 Temperature 98.6 F Temperature Source Temporal Pulse Rate 105 H 106 H Respiratory Rate 26 H 20 H Respiratory Effort Short of Breath Labored Accessory Muscle Use Respiratory Depth Shallow Respiratory Pattern Tachypnea Blood Pressure 142/92 H 138/95 H Blood Pressure Mean 108 109 Pulse Ox 99 Oxygen Delivery Method Room Air Room Air Room Air 08/23/21 13:35 08/23/21 17:14 Temperature Temperature Source Pulse Rate 110 H 119 H Respiratory Rate 96 H 18 Respiratory Effort Respiratory Depth Respiratory Pattern Blood Pressure 140/99 H 154/95 H Blood Pressure Mean 112 114 Pulse Ox 17 98 Oxygen Delivery Method Room Air Room Air Positive well nourished and well developed General Appearance ED: well developed and NAD HEENT Reports moist mucous membranes normocephalic and atraumatic Eyes PERRL and EOMs intact bilaterally Neck full ROM, supple, no meningeal signs and no JVD Resp normal respiratory effort and clear to auscultation bilaterally Resp Narrative: Mildly tachypneic in no distress Cardio regular rate, regular rhythm and no murmurs Rate: tachycardic GI non-tender and non-distended Auscultation: normoactive bowel sounds Palpation: soft Back/Spine no CVA tenderness General Back: other FROM Extremity normal to inspection and no calf tenderness General Extremety ED: Yes edema; Negative for pulses abnormal or tenderness General Extremity: edema bilateral lower extremity Details: moderate; Negative for pulses abnormal Neuro oriented x3, CN's II-XII intact bilaterally and no sensory deficits noted Sensorium / Orientation: awake and alert Motor Exam: strength 5/5 throughout Skin no rashes or lesions noted and no wounds MDM MDM MDM Narrative Medical decision making narrative: Patient had a negative CTA ruling out PE yesterday. Her chest x-ray shows mild pulmonary edema here, she has borderline elevated blood pressures as well as mildly elevated AST, ALT as well as mild proteinuria that is new. This is all potentially consistent with preeclampsia, but I think she needs be further evaluated for the possibility of cardiomyopathy. At this time she is clinically and hemodynamically stable. She was given magnesium and Lasix which caused her to urinate quite a bit and she was able to walk back and forth to the bathroom without significant difficulty. Discussed with Dr. Montgomery with OB who saw her today. Also discussed with cardiology Dr. Mancia, who agrees with a stat echocardiogram since it is Thursday and they are not performed over the weekend. This was done, shows an ejection fraction of 45% and mild global LV hypokinesia/dysfunction with mild MR and a mild to moderate left pleural effusion. Discussed again with Dr. Montgomery who discussed with Dr. Liu with [facility]. Patient will be accepted by Dr. Almaguer with cardiology, with whom I spoke. Patient's blood pressure creeping up into the 150s, she was given her oral regularly scheduled labetalol. She remained clinically and hemodynamically stable without the need for oxygen supplementation. Lab Data Attestation: I reviewed the patient's lab results. Labs: Laboratory Results - last 24 hr 08/23/21 08/23/21 08/23/21 10:20 11:54 11:54 WBC 11.7 H RBC 3.65 L Hgb 9.6 L Hct 31.0 L MCV 84.9 MCH 26.3 L MCHC 31.0 L RDW Std Deviation 47.7 H RDW Coeff of Tonny 16.0 H Plt Count 361 MPV 10.2 Immature Gran % (Auto) 0.700 Neut % (Auto) 77.1 H Lymph % (Auto) 15.7 L Drew % (Auto) 5.2 Eos % (Auto) 1.0 Baso % (Auto) 0.3 Absolute Neuts (auto) 9.0 H Absolute Lymphs (auto) 1.84 Nucleated RBC % 0 Sodium 140 Potassium 4.1 Chloride 109 H Carbon Dioxide 23.0 Anion Gap 8 BUN 13 Creatinine 0.55 Estim Creat Clear Calc 133.85 Est GFR (MDRD) Af Amer 172 Est GFR (MDRD) Non-Af 142 BUN/Creatinine Ratio 23.8 H Glucose 86 Calcium 8.8 Total Bilirubin 0.40 AST 45 H ALT 78 H Alkaline Phosphatase 99 Lactate Dehydrogenase 246 Troponin I High Sens 31 B-Natriuretic Peptide Total Protein 6.6 Albumin 2.2 L Globulin 4.4 H Albumin/Globulin Ratio 0.5 L Urine Color Yellow Urine Clarity Clear Urine pH 6.5 Ur Specific Hext 1.010 Urine Protein 15 H Urine Glucose (UA) Normal Urine Ketones Negative Urine Occult Blood 250 H Urine Nitrite Negative Urine Bilirubin Negative Urine Urobilinogen Normal Ur Leukocyte Esterase Negative Urine RBC 0-5 SEEN Urine WBC 0-5 SEEN Ur Squamous Epith Cells 0 SEEN Urine Bacteria 0 SEEN Urine Mucus 0 SEEN 08/23/21 11:54 WBC RBC Hgb Hct MCV MCH MCHC RDW Std Deviation RDW Coeff of Tonny Plt Count MPV Immature Gran % (Auto) Neut % (Auto) Lymph % (Auto) Drew % (Auto) Eos % (Auto) Baso % (Auto) Absolute Neuts (auto) Absolute Lymphs (auto) Nucleated RBC % Sodium Potassium Chloride Carbon Dioxide Anion Gap BUN Creatinine Estim Creat Clear Calc Est GFR (MDRD) Af Amer Est GFR (MDRD) Non-Af BUN/Creatinine Ratio Glucose Calcium Total Bilirubin AST ALT Alkaline Phosphatase Lactate Dehydrogenase Troponin I High Sens B-Natriuretic Peptide 309.2 H Total Protein Albumin Globulin Albumin/Globulin Ratio Urine Color Urine Clarity Urine pH Ur Specific Hext Urine Protein Urine Glucose (UA) Urine Ketones Urine Occult Blood Urine Nitrite Urine Bilirubin Urine Urobilinogen Ur Leukocyte Esterase Urine RBC Urine WBC Ur Squamous Epith Cells Urine Bacteria Urine Mucus Radiography Diagnostic Testing: Clinical Impression(s) from Imaging Studies Chest X-Ray 08/23/21 11:24 IMPRESSION: Interstitial edema or infiltrate. Electronically Signed: Emil Tobias MD at 12:08 EST , Service support , Echocardiogram 08/23/21 13:37 Interpretation Summary The estimated ejection fraction is 45 %. Mild global LV hypokinesia Mild LV systo;lic Function Mild MR Mild to moderate L.Pleural Effusion No prior echo to compare Ordering Physician: Emil Batista Rhythm Strip Rhythm Strip: Sinus Tach Rate: 110 Ectopy: None EKG Initial EKG: Attestation: I personally reviewed and interpreted this EKG as follows: Interpretation: No Acute Injury Pattern and Sinus Tachycardia Critical Care Time Critical Care Time: Yes Critical care time (excluding procedures): 30-74 minutes (35 min), Including time spent:, Discussing w/Patient &/or Family/[employer] Supervisor, Discussing w/Consultants, Arranging Admission or Transfer and Performing Direct Patient Care at Bedside Discharge Plan Triage Chief Complaint: Shortness of Breath ED Provider: Emil Batista Dx/Rx/DC Orders Clinical Impression: Pre-eclampsia in period, Pulmonary edema, cardiomyopathy Prescriptions: No Action ibuprofen [ibuprofen] 600 MG tablet 600 mg PO Q6H PRN (Reason: Pain) Qty: 60 RF: 1 oxycodone 5 MG tablet 5 mg PO Q6H PRN PRN (Reason: severe pain) 7 Days Qty: 10 RF: 0 ferrous sulfate [iron] 325 mg (65 mg iron) Tablet 325 mg PO DAILY RF: 0 [id number] 1 mg Tablet 1 tab PO DAILY RF: 0 labetalol 200 mg tablet 200 mg PO TID RF: 0 Primary Care Provider: Rivka Crow Referrals: Rivka Crow MD [Primary Care Provider] - Disposition Disposition: Acute Care Hospital Discharge Location: [facility]
--- NOTE | 2021-08-23 10:28 | EKG12_ITS ---
Test Reason : Blood Pressure : / mmHG Vent. Rate : 104 BPM Atrial Rate : 104 BPM P-R Int : 146 ms QRS Dur : 082 ms QT Int : 356 ms P-R-T Axes : 057 050 044 degrees QTc Int : 468 ms Sinus tachycardia Otherwise normal ECG Confirmed by MABEL EASON, HI ([id number]), staff editor CRISTAL SOTNE ([id number]) on 08/27/2021 8:58:10 AM Referred By: Sarah Gusman Confirmed By:HI MONROE MD
--- NOTE | 2021-08-23 11:24 | RAD_ITS ---
STUDY: X-RAY CHEST REASON FOR EXAM: Female, 26 years old. SOB TECHNIQUE: Single AP portable view of the chest. COMPARISON: December 16, 2016 FINDINGS: There are mild interstitial increased opacities of the lungs. There is no demonstrated pleural abnormality. Normal size heart. Normal mediastinum and shannon. Normal visualized pulmonary arteries. Normal visualized aortic arch and descending thoracic aorta. Normal visualized thoracic spine. Normal visualized ribs, clavicles, and shoulders. There is no demonstrated abnormality of the visualized soft tissue structures of the upper abdomen. RAD/Chest 1 View (Portable) IMPRESSION: Interstitial edema or infiltrate. Electronically Signed: Emil Tobias MD at 12:08 EST , Service support ,
[2021-08-23 11:51] LABS: Bacteria 0 SEEN /hpf (None Seen); Mucous, Urine 0 SEEN /hpf (<or=2+); Squamous Epithelial Cells - UA 0 SEEN /hpf (5-10)
[2021-08-23 11:57] LABS: Color, Urine Yellow (Yellow); Glucose, Dipstick Normal (Normal); Ketone-Dipstick Negative (Negative); Leukocyte Esterase-Dipstick Negative /ul (Negative); Nitrite-Dipstick Negative (Negative); Occult Blood-Urine 250 /ul (Negative); Protein-Dipstick 15 mg/dl (Negative); Urine Bilirubin Dipstick Negative (Negative); Urine Clarity Clear (Clear); Urine Urobilinogen Normal (Normal); Urine pH 6.5 (5.0 - 8.0)
[2021-08-23] MEDS: Magnesium Sulfate 4gm/100mL 4 GM/100 ML IV.SOLN. IV (12:01)
[2021-08-23 12:03] LABS: Absolute Lymphocyte Count 1.84 X10^3/uL (0.83-4.51); Basophil# 0.04 X10^3/uL; Basophil% 0.3 % (0-1); Eosinophil# 0.12 X10^3/uL; Hemoglobin 9.6 g/dL (12.0-15.0); Lymphocyte # 1.84 X10^3/ul (0.83-4.51); Lymphocyte % 15.7 % (19-41); Mean Corpuscular Hgb 26.3 pg (27.0-32.0); Mean Corpuscular Volume 84.9 fL (81-99); Mean Platelet Vol. 10.2 fl (6.2-12.0); Monocyte# 0.61 X10^3/uL; Monocyte% 5.2 % (0-10); NRBC Flagged by Analyzer 0 % (0-5); Neutrophil # 9.01 X10^3/uL (2.7-7.7); Neutrophil % 77.1 % (47-70); Platelet Count 361 K/mm3 (150-450); RBC Distribution Width SD 47.7 fl (35.1-43.9); Red Blood Count 3.65 M/mm3 (4.2-5.4); White Blood Count 11.7 K/mm3 (4.4-11.0)
[2021-08-23 12:04] LABS: Red Blood Cells-Urine 0-5 SEEN /hpf (0-5); White Blood Cells 0-5 SEEN /hpf (0-5)
[2021-08-23 12:24] LABS: ALB/GLOB Ratio 0.5 RATIO (0.9-2.4); AST(SGOT) 45 U/L (15-37); Alanine Aminotransfer ALT/SGPT 78 U/L (13-56); Albumin, Serum 2.2 g/dL (3.2-5.0); Alkaline Phosphatase 99 U/L (45-117); Anion Gap 8 (5-15); BUN 13 mg/dL (7-18); BUN/Creat Ratio 23.8 RATIO (10-20); Calcium,Total 8.8 mg/dL (8.5-10.1); Chloride 109 mmol/L (98-107); Creatinine, Serum 0.55 mg/dL (0.55-1.02); EST Glomerular Filtration Rate 142 mL/min (>60); Est Glom Filt Rate - Afr Amer 172 mL/min (>60); Estimated Creatinine Clearance 133.85 ml/min; Globulin 4.4 g/dL (2.2-4.2); Glucose 86 mg/dL (74-106); LDH 246 U/L (84-246); Potassium 4.1 mmol/L (3.5-5.1); Protein, Total 6.6 g/dL (6.4-8.2); Sodium Level 140 mmol/L (136-145); Troponin-I HS 31 pg/mL (3.0-54.0)
[2021-08-23 13:31] LABS: BNP,B-Type NATRIURETIC PEPTIDE 309.2 pg/mL (0-100)
[2021-08-23] MEDS: Furosemide 20 MG/2 ML VIAL IV (13:34)
--- NOTE | 2021-08-23 13:37 | ECHOD_ITS ---
Left Ventricle Mildly dilated left ventricle. The estimated ejection fraction is 45 %. Right Ventricle Normal right ventricle. Normal systolic function. Atria The left atrium is mildly enlarged. Normal right atrium. Mitral Valve The mitral valve is structurally normal. No prolapse or stenosis seen. Mild (1+) mitral valve insufficiency. Tricuspid Valve Normal tricuspid valve. No tricuspid valve insufficiency. Aortic Valve Normal aortic valve. No aortic valve insufficiency. Pulmonic Valve The pulmonic valve is not well visualized. Great Vessels Normal aortic root. Pericardium/Pleural No pericardial effusion. MMode/2D Measurements & Calculations LVIDd: 5.8 cm IVSd: 1.1 cm Ao root diam: 2.6 cm LVIDs: 5.0 cm LVPWd: 1.0 cm FS: 13.5 % LAV(MOD-bp): 43.5 ml LVAd ap4: 33.9 cm2 SV(MOD-sp4): 52.7 ml LAV(MOD-bp) Indexed: 20.6 ml/m2 LVLd ap4: 8.8 cm LAV(MOD-sp2): 47.0 ml EDV(MOD-sp4): 111.5 ml LAV(MOD-sp4): 39.7 ml EDV(sp4-el): 111.2 ml LVAs ap4: 22.6 cm2 LVLs ap4: 7.7 cm ESV(MOD-sp4): 58.8 ml ESV(sp4-el): 56.0 ml EF(MOD-sp4): 47.3 % EF(sp4-el): 49.7 % SV(sp4-el): 55.2 ml LA dimension(2D): 4.5 cm LA A4 area: 15.6 cm2 RA A4 area: 9.1 cm2 Doppler Measurements & Calculations MV E max jonas: 113.3 cm/sec Lat Peak E' Jonas: 14.8 cm/sec Med Peak E' Jonas: 9.9 cm/sec MV A max jonas: 102.6 cm/sec E/E' lat: 7.6 E/E' med: 11.4 MV E/A: 1.1 Ao V2 max: 185.4 cm/sec LV V1 max: 126.0 cm/sec PA V2 max: 128.1 cm/sec Ao max P.7 mmHg LV V1 max P.4 mmHg Ao V2 mean: 132.7 cm/sec Ao mean P.7 mmHg Ao V2 VTI: 34.6 cm TR max jonas: 290.4 cm/sec TR max P.7 mmHg ECHO/Echo Complete Interpretation Summary The estimated ejection fraction is 45 %. Mild global LV hypokinesia Mild LV systo;lic Function Mild MR Mild to moderate L.Pleural Effusion No prior echo to compare Ordering Physician: Emil Batista
[2021-08-23] MEDS: Labetalol 100 MG Tablet PO (17:23)
--- NOTE | 2021-08-23 18:34 | ED.RN ---
CALLED [facility] AND THEY DO NOT HAVE A TIME FRAME FOR WHEN THE PATIENT WILL GET A BED
[2021-08-23] MEDS: Acetaminophen 500 MG Tablet 1000 MG PO (19:57)
[2021-08-23] MEDS: Labetalol 100 MG/20 ML Vial 40 MG IV (23:14)
--- NOTE | 2021-08-24 00:02 | ED.RN ---
Friend steps out and states they want to go upstairs now. Explained we are waiting on [facility] as they still do not have a bed. Explained we are waiting on a call back from specialist to see if we are admitting here or waiting and will check with yard supervisor to see about getting a regular hospital bed . Encouraged patient to return to bed to elevate the legs for the swelling. Called and talked with yard supervisor and relayed back to patient that we will be waiting on OB consult call and if they are going to admit, we will get her up there and if not, we will get the bed down here. Patient is agreeable.
[2021-08-24 00:06] VITALS: BP 133/93; PULSE 78; RESP 19; O2SAT 99
[2021-08-24 01:06] VITALS: BP 131/76; PULSE 98; RESP 19; TEMP 36.8; O2SAT 100
--- NOTE | 2021-08-24 01:07 | ED.RN ---
report given to RN at [facility] [id number]
--- NOTE | 2021-08-24 01:14 | ED.RN ---
Gave the 40mg trandate but there were two orders in system. This nurse only gave the one dose.
[2021-08-24 01:55] VITALS: BP 140/91; PULSE 108; RESP 20; O2SAT 98
[2021-08-24] MEDS: Labetalol 200 MG Tablet PO (01:55)
== END 2021-08-24 02:00 | disposition short-term general hospital (02) ==
PROVIDERS: Emergency Provider Emergency Medicine; PCP Student in an Organized Health Care Education/Training Program
DX: O14.05 Mild to moderate pre-eclampsia, complicating the puerperium (principal); O99.43 Diseases of the circulatory system complicating the puerperium; I51.7 Cardiomegaly; J81.1 Chronic pulmonary edema
CPT/HCPCS: 71045; 80053; 81001; 83615; 83880; 84484; 85025; 87426; 93005; 93306; 96365; 96366; 96375; 99285; A4216; J1940